=== PATIENT | male | born 2000 | race Caucasian/White ===

== ENCOUNTER 2023-01-07 20:47 | Emergency (ER) | payer SELFPAY ==
[2023-01-07] MEDS ORDERED: Ketorolac Tromethamine 30 MG/ML VIAL ONE ×2 (21:33→22:21)
[2023-01-07] MEDS ORDERED: fentaNYL 50 mcg/mL 1 mL Vial ONE (21:33)
[2023-01-07] MEDS ORDERED: Diazepam 5 MG TAB ONE (22:21)
== END 2023-01-07 22:31 | disposition home or self-care (01) ==
LOC: ERS 20:47 → EDSEX 20:47 → ERS 22:31
DX: M54.50 Low back pain, unspecified (principal)
CPT/HCPCS: 72131; 96372; J1885; J3010

== ENCOUNTER 2024-01-27 02:38 | Emergency (ER) | payer BC, OTHER ==
[2024-01-27 03:42] LABS: #Basophils 0.06 10x3/uL (0.0-0.2); %Basophils 0.7 % (0.0-1.0); %Eosinophils 4.8 % (0.0-10.0); %Lymphocytes 32.5 % (21.0-51.0); %Monocytes 7.8 % (0.0-10.0); Hematocrit 45.4 % (42.0-52.0); Hemoglobin 15.2 g/dL (14.0-18.0); Mean Corpuscular HGB CONC 33.5 g/dL (32.0-36.0); Mean Corpuscular Hemoglobin 28.3 pg (27.0-31.0); Mean Corpuscular Volume 84.5 fL (78.0-98.0); Mean Platelet Volume 9.9 fL (7.4-10.4); Platelet Count 228 10x3/uL (130-400); RBC Distribution Width 12.4 % (11.5-14.5); Red Blood Cell (RBC) Count 5.37 mill/uL (4.70-6.10)
[2024-01-27 04:00] LABS: ALT (SGPT) 15 U/L (8-55); AST (SGOT) 15 U/L (5-34); Albumin 4.5 g/dL (3.5-5.0); Alkaline Phosphatase 97 U/L (40-110); Anion Gap 14 mmol/L (10-20); BUN (Urea Nitrogen) 10 mg/dL (8.9-20.6); Bilirubin, Total 1.4 mg/dL (0.2-1.2); Calc. Creatinine Clearance 0 mL/min (70-130); Calcium 9.8 mg/dL (7.8-10.44); Carbon Dioxide 24 mmol/L (22-29); Chloride 105 mmol/L (98-107); Estimated GFR 128; Globulin 2.9 g/dL (2.4-3.5); Glucose 103 mg/dL (70-105); Potassium 3.9 mmol/L (3.5-5.1); Protein, Total 7.4 g/dL (6.0-8.3); Sodium 139 mmol/L (136-145)
[2024-01-27 04:01] LABS: Troponin I Less than 0.010 ng/mL (< 0.028)
== END 2024-01-27 04:26 | disposition home or self-care (01) ==
LOC: ERS 02:38
DX: R00.2 Palpitations (principal)
CPT/HCPCS: 36415; 71045; 80053; 84484; 85025; 85379; 93005